=== PATIENT | male | born 1990 | race Caucasian/White ===

== ENCOUNTER 2018-02-15 01:27 | Emergency (ER) | payer BC ==
[~2018-02-15] VITALS: Ht 180.3 cm; Wt 76.1 kg
[~2018-02-15 01:27] MED LIST: IBUP-1050 PO; MEDLIST
[2018-02-15 01:32] VITALS: TEMP 37; Ht 180.3 cm; Wt 76.1 kg
[2018-02-15] MEDS ORDERED: ALUMINUM/MAGNESIUM SUSP 30 ML UDC PO STA (01:54)
[2018-02-15] MEDS ORDERED: LIDOCAINE HCL 2% VISC SOLN 20 ML UDC PO STA (01:54)
[2018-02-15 02:25] LABS: BASO % 0.2 %; BASO ABS # 0.03 K/uL (0-0.2); EOS % 0.4 %; EOS ABS # 0.06 K/uL (0-0.5); HEMATOCRIT 41.8 % (42-52); HEMOGLOBIN 15.1 g/dL (14.0-18.0); IG# 0.04 K/uL (0.00-0.02); LYMPH % 10.9 %; LYMPH ABS # 1.55 K/uL (1.2-3.4); MEAN CELL VOLUME 86.7 fL (80-100); MEAN CORPUSCULAR HEMOGLOBIN 31.3 pg (25-34); MEAN CORPUSCULAR HGB CONC 36.1 g/dl (32-36); MEAN PLATELET VOLUME 10.1 fL (7.4-10.4); MONO % 6.2 %; MONO ABS # 0.89 K/uL (0.11-0.59); NEUT ABS # 11.69 K/uL (1.4-6.5); PLATELET COUNT 198 K/uL (130-400); RED CELL DISTRIBUTION WIDTH CV 12.3 % (11.5-14.5); RED CELL DISTRIBUTION WIDTH SD 39.7 fL (36.4-46.3); WHITE BLOOD COUNT 14.26 K/uL (4.8-10.8)
[2018-02-15 02:48] LABS: CREATININE 1.02 mg/dl (0.60-1.40)
[2018-02-15 02:56] LABS: ALBUMIN 4.3 gm/dl (3.4-5.0); CALCIUM 8.7 mg/dl (8.5-10.1); POTASSIUM 3.7 mmol/L (3.5-5.1); TOTAL PROTEIN 7.8 gm/dl (6.4-8.2)
[2018-02-15 03:11] VITALS: BP 117/67; PULSE 90; O2SAT 95
[2018-02-15] MEDS ORDERED: PANTOprazole SOD 40 MG TAB PO STA (03:29)
--- NOTE | 2018-02-15 03:29 | EMERGENCY ROOM VISIT NOTE ---
History First contact with patient: 01:34 Chief Complaint: ABDOMINAL PAIN Stated Complaint: TERRIBLE BURNING STOMACH PAINS History of Present Illness The patient is a 27 year old male who presents to the Emergency Room with complaints of intermittent epigastric discomfort for the past few months. Patient states tonight the pain persisted and he tried Pepto-Bismol with no improvement of symptoms. Patient describes it as a burning sensation. Currently 5 out of 10. Nothing makes it better or worse. Patient denies chest pain, dyspnea, nausea, vomiting, diarrhea, back pain, urinary symptoms, stooling problems. There is a family history of diverticulitis. He has not had this before. Review of Systems An 10 system review of systems was completed with positives and pertinent negatives listed in the HPI. Past Medical/Surgical History None Social History Smoking Status: Never Smoker Drug Use: none Marital Status: in relationship Occupation Status: employed Physical Exam Vital Signs Date Time Temp Pulse Resp B/P (MAP) Pulse Ox O2 Delivery O2 Flow Rate FiO2 02/15/18 03:11 90 18 117/67 95 Room Air 02/15/18 01:32 37.0 102 20 118/74 95 Room Air Physical Exam VITALS: Vitals are noted on the nurse's note and reviewed by myself. Vital signs stable. GENERAL: Pleasant male, in no acute distress, nondiaphoretic, well-developed well-nourished. SKIN: Capillary reflex less than 2 seconds. HEENT: Normocephalic. PERRLA. EOMI. Nares patent. Mucous membranes moist. Neck is supple without nuchal rigidity. HEART: Regular rate and rhythm without murmurs gallops or rubs. LUNGS: Clear to auscultation bilaterally without wheezes, rales or rhonchi. No retractions or accessory muscle use. ABDOMEN: Positive bowel sounds x 4. Normal tympanic percussion. Soft, minimally tender epigastric region, without masses or organomegaly. Owens sign negative. No guarding or rebound tenderness. No CVA tenderness MUSCULOSKELETAL: No gross musculoskeletal defects. NEURO: Patient was alert and oriented to person place and time. Normal sensation to light and sharp touch. No focal neurological deficits. Medical Decision & Procedures Laboratory Results 02/15/18 02:10 Red Blood Count 4.82, Mean Corpuscular Volume 86.7, Mean Corpuscular Hemoglobin 31.3, Mean Corpuscular Hemoglobin Concent 36.1, Mean Platelet Volume 10.1, Neutrophils (%) (Auto) 82.0, Lymphocytes (%) (Auto) 10.9, Monocytes (%) (Auto) 6.2, Eosinophils (%) (Auto) 0.4, Basophils (%) (Auto) 0.2, Neutrophils # (Auto) 11.69, Lymphocytes # (Auto) 1.55, Monocytes # (Auto) 0.89, Eosinophils # (Auto) 0.06, Basophils # (Auto) 0.03 02/15/18 02:10 Test 02/15/18 02:10 White Blood Count 14.26 K/uL (4.8-10.8) Red Blood Count 4.82 M/uL (4.7-6.1) Hemoglobin 15.1 g/dL (14.0-18.0) Hematocrit 41.8 % (42-52) Mean Corpuscular Volume 86.7 fL (80-100) Mean Corpuscular Hemoglobin 31.3 pg (25-34) Mean Corpuscular Hemoglobin Concent 36.1 g/dl (32-36) Platelet Count 198 K/uL (130-400) Mean Platelet Volume 10.1 fL (7.4-10.4) Neutrophils (%) (Auto) 82.0 % Lymphocytes (%) (Auto) 10.9 % Monocytes (%) (Auto) 6.2 % Eosinophils (%) (Auto) 0.4 % Basophils (%) (Auto) 0.2 % Neutrophils # (Auto) 11.69 K/uL (1.4-6.5) Lymphocytes # (Auto) 1.55 K/uL (1.2-3.4) Monocytes # (Auto) 0.89 K/uL (0.11-0.59) Eosinophils # (Auto) 0.06 K/uL (0-0.5) Basophils # (Auto) 0.03 K/uL (0-0.2) RDW Standard Deviation 39.7 fL (36.4-46.3) RDW Coefficient of Variation 12.3 % (11.5-14.5) Immature Granulocyte % (Auto) 0.3 % Immature Granulocyte # (Auto) 0.04 K/uL (0.00-0.02) Urine Color YELLOW Urine Appearance TURBID (CLEAR) Urine pH 8.5 (4.5-7.5) Urine Specific Amma 1.025 (1.000-1.030) Urine Protein NEG (NEG) Urine Glucose (UA) NEG (NEG) Urine Ketones TRACE (NEG) Urine Occult Blood NEG (NEG) Urine Nitrite NEG (NEG) Urine Bilirubin NEG (NEG) Urine Urobilinogen NEG (NEG) Urine Leukocyte Esterase NEG (NEG) Urine WBC (Auto) 0 /hpf (0-5) Urine RBC (Auto) 0-4 /hpf (0-4) Urine Hyaline Casts (Auto) 1-5 /lpf (0-5) Urine Epithelial Cells (Auto) 0-5 /lpf (0-5) Urine Bacteria (Auto) NEG (NEG) Anion Gap 9.0 mmol/L (3-11) Est Creatinine Clear Calc Drug Dose 113.8 ml/min Estimated GFR () 114.6 Estimated GFR (Non- 98.9 BUN/Creatinine Ratio 12.0 (10-20) Calcium Level 8.7 mg/dl (8.5-10.1) Total Bilirubin 0.9 mg/dl (0.2-1) Direct Bilirubin mg/dl (0-0.2) Aspartate Amino Transf (AST/SGOT) 18 U/L (15-37) Alanine Aminotransferase (ALT/SGPT) 17 U/L (12-78) Alkaline Phosphatase 91 U/L (45-117) Total Protein 7.8 gm/dl (6.4-8.2) Albumin 4.3 gm/dl (3.4-5.0) Lipase 73 U/L (73-393) Medications Administered Medications (Trade) Dose Ordered Sig/Jeison Route Start Time Stop Time Status Last Admin Dose Admin Lidocaine HCl (Viscous Lidocaine 2% Soln) 10 ml NOW STAT PO 02/15/18 01:54 02/15/18 01:56 DC 02/15/18 02:18 10 ML Al Hydroxide/Mg Hydroxide (Maalox Susp) 30 ml NOW STAT PO 02/15/18 01:54 02/15/18 01:56 DC 02/15/18 02:18 30 ML ED Course Prior records/ancillary studies reviewed. Triage Nursing notes reviewed. Additional history obtained from family The patient's history was concerning for abdominal pain. Differential diagnosis: Etiologies such as reflux, appendicitis, diverticulitis, PUD, biliary pathology , UTI, pancreatitis, obstruction, mesenteric ischemia, aortic pathology, infections, inflammatory bowel disease, renal colic, as well as others were entertained. Physical examination findings: As above. ER treatment provided: GI cocktail On reassessment the patient felt better. Diagnostics interpreted by me: The labs revealed mild leukocytosis. Stable H&H. Normal LFTs. Imaging studies: Ultrasound negative for cholecystitis, gallbladder polyps present per stat radiology Exam and history seem consistent with reflux. Patient has had intermittent symptoms. He felt better after the GI cocktail. He did not have an acute abdomen on exam. He is well-appearing. He is tolerating fluids. He is advised to take medications as directed, rest, stay well-hydrated, avoid acidic and spicy foods and to follow-up family care in a few days here in the ER sooner for abdominal, fevers, vomiting, worsening signs or symptoms or as needed. By the evaluation outlined above emergent etiologies such as appendicitis, diverticulitis, PUD, biliary pathology, UTI, pancreatitis, obstruction, mesenteric ischemia, aortic pathology, infections, inflammatory bowel disease, renal colic, as well as others were deemed relatively unlikely. The pt informed about the findings as listed above. All questions were answered and pleased with the treatment. Return instructions were outlined and the patient was discharged in stable condition. Outpatient prescription management: Protonix Referral: The patient was referred back to their primary care physician for follow-up in 2 to 3 days for a recheck of the current condition. Case reviewed with my attending The chart was completed utilizing [email or web address] Speech voice recognition software. Grammatical errors, random word insertions, pronoun errors, and incomplete sentences are an occassional consequence of this system due to software limitations, ambient noise, and hardware issues. Any formal questions or concerns about the content, text, or information contained within the body of this dictation should be directly addressed to the physician residential assistant for clarification. Medical Decision As above Medication Reconcilliation Current Medication List: was personally reviewed by me Blood Pressure Screening Patient's blood pressure: Normal blood pressure Impression Primary Impression: Epigastric abdominal pain Departure Information Dispostion Home / Self-Care Condition GOOD Referrals Kendrick Mendoza M.D. (PCP) Patient Instructions My [facility] Additional Instructions Protonix 40 m tablet daily for next 2 weeks. Take this on an empty stomach. Try Maalox or Zantac for breakthrough symptoms for reflux. Avoid large meals. Avoid acidic foods. Rest and drink plenty of fluids as tolerated. Continue current medications. Avoid strenuous activities and anything that worsens your pain. Resume normal activities once your symptoms resolve. Return to the ER immediately for worsening or persistent chest pain, abdominal pain, black or blood in your stools, vomiting, fevers, chest pains, difficulty breathing, worsening of your condition, or as needed. Follow up with your primary physician in 2-3 days for a recheck of your current condition. If your symptoms do not improve after taking the Protonix then recommend a GI referral for endoscopy.
[2018-02-15] MEDS ORDERED: PANT40TA PO (03:31)
--- NOTE | 2018-02-15 07:06 | DIAGNOSTIC IMAGING REPORT ---
ABDOMINAL ULTRASOUND, RIGHT UPPER QUADRANT HISTORY: Right upper quadrant abdominal pain.. COMPARISON: None. FINDINGS: Pancreas: The pancreas demonstrates a normal echotexture. Liver: Unremarkable. Gallbladder: No gallbladder wall thickening. No gallstones. Multiple small polyps with the largest measuring 4 mm. CBD: 2 mm. Right kidney: No hydronephrosis. IMPRESSION: No significant abnormality identified within the right upper quadrant. Multiple small gallbladder polyps. Electronically signed by: Bob Domingo M.D. 02/15/2018 7:05 AM Dictated Date/Time: 02/15/2018 7:04 AM
== END 2018-02-15 03:37 | disposition home or self-care (01) ==
LOC: C.EDB 01:29
DX: R10.13 Epigastric pain (principal)